=== PATIENT | female | born 1995 | race Caucasian/White ===

== ENCOUNTER 2021-01-27 10:22 | Outpatient (RCR) | payer OTHER, SELFPAY ==
[2021-01-27 11:21] LABS: Beta HCG Quantitative < 2.39 mIU/ML
== END 2021-04-27 23:59 | disposition home or self-care (01) ==
LOC: ANHLAB 10:22
PROVIDERS: Visit Provider Obstetrics & Gynecology
DX: N92.6 Irregular menstruation, unspecified (principal)
CPT/HCPCS: 36415; 84702

== ENCOUNTER 2021-02-12 14:23 | Outpatient (CLI) | payer OTHER, SELFPAY ==
[2021-02-12 15:08] LABS: Beta HCG Quantitative < 2.39 mIU/ML
== END 2021-02-12 14:24 | disposition home or self-care (01) ==
LOC: ANHLAB 14:24
PROVIDERS: Visit Provider Obstetrics & Gynecology
DX: N92.6 Irregular menstruation, unspecified (principal)
CPT/HCPCS: 36415; 84702

== ENCOUNTER 2021-05-12 19:41 | Emergency (ER) | payer OTHER, SELFPAY ==
--- NOTE | 2021-05-12 19:43 | ED.GENADULT ---
HPI - General Adult General Chief complaint: Upper Respiratory Infection Stated complaint: Doctors Note Time Seen by Provider: 05/12/21 19:44 Source: patient, RN notes reviewed and old records reviewed Mode of arrival: ambulatory Limitations: no limitations History of Present Illness HPI narrative: 25-year-old female presents to the [facility] with wanting additional work notes. Patient reports that she was seen at [facility] yesterday, diagnosed with a bilateral ear infection. States she was not feeling better and wanted more time to be off. Discussed with patient that anything over 2 to 3 days can fall under FMLA and she needs to follow-up with her primary care provider for extended work absence. Related Data Home Medications Medication Instructions Recorded Confirmed amoxicillin-pot clavulanate tablet 05/12/21 prednisone 05/12/21 Allergies Allergy/AdvReac Type Severity Reaction Status Date / Time No Known Allergies Allergy Unknown Verified 05/12/21 19:44 Review of Systems Review of Systems: All systems reviewed & are unremarkable except as noted in HPI and below Constitutional: Constitutional: Reports no additional constitutional complaints, Denies chills and Denies fever(s) Eyes: Eyes: Reports no additional eye complaints ENT: Reports system reviewed and no additional complaints, except as documented Cardiovascular: Cardiovascular: Reports no additional cardiovascular complaints and Denies chest pain Respiratory: Respiratory: Reports no additional respiratory complaints, Denies cough and Denies dyspnea Gastrointestinal: Gastrointestinal: Reports no additional gastrointestinal complaints, Denies abdominal pain, Denies nausea and Denies vomiting Musculoskeletal: Musculoskeletal: Reports no additional musculoskeletal complaints, Denies back pain and Denies myalgias Integumentary/Breasts: Skin/Breast: Reports system reviewed and no additional complaints, except as docu Neurologic: Reports system reviewed and no additional complaints, except as documented and Denies headache(s) Psychiatric: Psychiatric: Reports no additional psychiatric complaints Allergic/Immunologic: Allergic/Immunologic: Reports no additional allergic/immunologic complaints PMFSH Past Medical History Medical History (Updated 05/12/21 @ 20:02 by Pebbles Chen APRN) Depression Comments At the time of my signature, I reviewed and agree with the nursing past medical, surgical, social, and family history. There is no relevant family history pertinent to the patient complaint. Exam Const: General: healthy appearing, no acute distress and alert Nutritional Appearance: well nourished Orientation/consciousness: patient oriented x3 Limitations: no limitations HENMT: Head: normal to inspection Ears: external ears normal Eyes: Pupils: Equal, round and reactive pupils present Neck: Neck: normal visual inspection, no lymphadenopathy and no meningeal signs Chest: Chest palpation & inspection: normal inspection of the chest Resp: Effort & Inspection: normal respiratory effort and no use of accessory muscles Auscultation: clear to auscultation bilaterally, no crackles, no rales, no rhonchi and no wheezes Cardio: Rate: regular rate Rhythm: regular rhythm Skin: General skin exam: normal color Rashes: no rashes Wounds: no wounds Neuro: General: patient oriented x3, moves all extremities, no meningeal signs and no focal motor deficits Cranial nerves: Yes Equal, round and reactive pupils present Speech: normal speech Gait exam (Neuro): Normal gait present Extrem: General: normal to inspection Psych: Appearance: grossly normal and well kempt Mental Status: mental status grossly normal Affect: normal affect Attitude: cooperative Thought content: Yes Normal thought content present Course Course Emergency Course: Discharge instructions reviewed with patient, as well as provided in writing per nursing staff. The instructions a
[2021-05-12 19:50] VITALS: BP 131/78; PULSE 80; RESP 16; TEMP 37.2; O2SAT 100
== END 2021-05-12 20:00 | disposition home or self-care (01) ==
PROVIDERS: Emergency Provider Nurse Practitioner
DX: H66.93 Otitis media, unspecified, bilateral (principal)
CPT/HCPCS: 99211; G0463

== ENCOUNTER 2022-05-23 10:13 | Emergency (ER) | payer OTHER, SELFPAY ==
--- NOTE | 2022-05-23 10:21 | ED.URI ---
HPI - URI/Sore Throat General Chief Complaint: Upper Respiratory Infection Stated Complaint: uri Time Seen by Provider: 05/23/22 10:28 Source: patient and RN notes reviewed Mode of arrival: ambulatory Limitations: no limitations History of Present Illness HPI Narrative: 26-year-old female presents with concern for sore throat and ear pain that started yesterday. She reports her daughter had strep throat last week. She denies runny nose, stuffy nose, headache, stomachache, fever, chills, sweats, body aches MD elicited complaint: sore throat Related Data Allergies Allergy/AdvReac Type Severity Reaction Status Date / Time No Known Allergies Allergy Unknown Verified 05/23/22 10:34 Review of Systems Review of Systems: CONSTITUTIONAL: Denies malaise, chills, sweats, or fever. EYES: Denies visual changes, redness, or discharge. ENT: Denies rhinorrhea, congestion, sinus pain. Reports otalgia and sore throat. CARDIOVASCULAR: Denies chest pain, palpitations, or edema. RESPIRATORY: Denies cough. Denies dyspnea. GASTROINTESTINAL: Denies abdominal pain, nausea, vomiting, diarrhea SKIN: Denies rash or itching. MUSCULOSKELETAL: Denies myalgia. NEUROLOGIC: Denies headache. All systems reviewed & are unremarkable except as noted in HPI and below PMFSH Past Medical History Medical History Depression FH: cholecystectomy Social History Social History (Updated 02/18/22 @ 09:49 by Yuridia Yan MA) Smoking status: Unknown if ever smoked Tobacco type: e-cigarettes/vaping Alcohol intake: never Substance use: never Living arrangements: with family Occupation/Education: unemployed Gender identity (if verbalized by the patient): Female Sexual Orientation (if Verbalized by the Patient): Straight or Heterosexual Comments At time of signature, agree with nursing past medical, surgical, social and family history. There is no relevant family history pertinent to the presenting complaint Exam Narrative: GENERAL: Well-appearing, well-nourished, and in no acute distress. HEAD: Normocephalic EYES: PERRLA, conjunctivae clear ENT: Nares clear, no discharge. Mucous membranes moist. TM pearly worrell with sharp light reflex bilaterally; no tragal tenderness. Oropharynx erythematous without lesions. Tonsils enlarged and without exudate, no drooling, no hoarseness, no trismus, uvula midline. NECK: Supple. No lymphadenopathy CHEST: Clear to auscultation, breath sounds equal. No wheezing, rhonchi, rales, or stridor. No respiratory distress, speaks in full sentences. HEART: Regular rate and rhythm. No murmur heard. SKIN: Warm, dry, no rash. NEURO: Alert and oriented x3. PSYCH: Normal mood and affect Course Course Emergency Course: Patient is aware of diagnosis, understands and agrees to treatment plan. Anticipatory guidance given. Patient agrees to follow-up as directed and is aware of reasons to seek care at the emergency department. Portions of this record may have been created with voice recognition software Level of Care: Express Care Visit Vital Signs Vital signs: Reviewed. MDM - URI/Sore Throat MDM Narrative Medical decision making narrative: Differential diagnosis considered: Mata virus, strep pharyngitis, allergic rhinitis, upper respiratory tract infection, sinusitis, rhinosinusitis, nasopharyngitis. viral pharyngitis, otitis media, otitis externa, pneumonia, bronchitis, viral cough syndrome, viral syndrome, and influenza. Exam findings show no acute concerns or changes; patient is non-toxic appearing and is in no distress. Patient is appropriate for outpatient treatment and follow-up. Lab Data Attestation: I reviewed the patient's lab results. Critical Care Time Critical Care Time Critical Care Time: No Discharge Plan Discharge Clinical Impression: Acute streptococcal pharyngitis Patient Disposition: Home, Self-Care Condition: Stable Instructions:
[2022-05-23 10:22] VITALS: BP 142/86; PULSE 105; RESP 16; TEMP 37.5; O2SAT 99
== END 2022-05-23 10:53 | disposition home or self-care (01) ==
PROVIDERS: Emergency Provider Nurse Practitioner; PCP Physician Assistant
DX: J02.0 Streptococcal pharyngitis (principal)
CPT/HCPCS: 87880; 99213; G0463

== ENCOUNTER 2022-08-27 09:32 | Outpatient (CLI) | payer OTHER, SELFPAY ==
[2022-08-27 10:20] LABS: Basophils Absolute Auto 0.1 K/mm3 (0.0-0.1); Basophils Percent Auto 0.9 % (0.2-1.2); Eosinophils Absolute Auto 0.3 K/mm3 (0-0.3); Eosinophils Percent Auto 3.6 % (0-4.4); Hematocrit 42.2 % (37.0-47.0); Hemoglobin 13.4 g/dL (12.0-15.0); Immature Granulocyte Absolute 0.02 K/mm3 (0.00-0.031); Immature Granulocyte Percent A 0.3 % (0-0.5); Lymphocytes Absolute Auto 2.81 K/mm3 (0.9-3.2); Lymphocytes Percent Auto 35.3 % (18.3-44.2); Mean Corpuscular HGB Conc 31.8 g/dl (32-36); Mean Corpuscular Hemoglobin 25.6 pg (26-34); Mean Corpuscular Volume 80.5 fl (80-100); Mean Platelet Volume 10.5 fl (7.4-10.4); Monocytes Absolute Auto 0.6 K/mm3 (0.1-0.6); Monocytes Percent Auto 7.3 % (2.6-8.5); Neutrophils Absolute Auto 4.2 K/mm3 (1.3-6.7); Neutrophils Percent Auto 52.6 % (45.5-73.1); Platelet Count Result 269 k/mm3 (150-375); Red Blood Count 5.24 M/mm3 (4.2-5.4); Red Cell Distribution Width 13.6 % (11.5-14.5)
[2022-08-27 10:25] LABS: Hemoglobin A1C 5.4 % (<5.7)
[2022-08-27 10:45] LABS: Cholesterol 186 mg/dL (0-200); HDL Direct 27 mg/dL; Triglycerides 205 mg/dL (<150)
[2022-08-27 10:56] LABS: LDL Cholesterol Direct 110 mg/dL
[2022-08-27 10:59] LABS: Beta HCG Quantitative < 2.39 mIU/ML
[2022-08-27 11:13] LABS: Iron 82 ug/dL (37-170)
[2022-08-27 11:22] LABS: Percent Iron Saturation 23 % (20-50)
[2022-08-31 11:47] LABS: DHEA-Sulfate 141 mcg/dL (18-391); Insulin Level Total 15.2 uIU/mL (<=19.6)
[2022-09-03 00:12] LABS: Estradiol, Ultrasensitive 44 pg/mL
[2022-09-03 06:41] LABS: FSH 7.3 mIU/mL (***); Prolactin 9.6 ng/mL (***)
[2022-09-03 07:27] LABS: Progesterone 0.5 ng/mL (***)
[2022-09-06 07:33] LABS: Free Insulin 14.5
== END 2022-08-27 09:33 | disposition home or self-care (01) ==
PROVIDERS: PCP Physician Assistant; Visit Provider Obstetrics & Gynecology
DX: N92.6 Irregular menstruation, unspecified (principal); E66.01 Morbid (severe) obesity due to excess calories
CPT/HCPCS: 36415; 80061; 82627; 82670; 82728; 83001; 83036; 83498; 83525; 83527; 83540; 83550; 84144; 84146; 84443; 84702; 85025

== ENCOUNTER 2022-10-04 10:42 | Emergency (ER) | payer OTHER, SELFPAY ==
[2022-10-04 10:56] VITALS: BP 134/76; PULSE 92; RESP 18; TEMP 36.2; O2SAT 100
--- NOTE | 2022-10-04 11:23 | ED.URI ---
HPI - URI/Sore Throat General Chief Complaint: Upper Respiratory Infection Stated Complaint: cough, sore throat Time Seen by Provider: 10/04/22 11:16 Source: patient and RN notes reviewed Mode of arrival: ambulatory Limitations: no limitations History of Present Illness HPI Narrative: Patient presents today complaining 3 day history of sore throat, cough, headache, left ear pain. She was exposed to strep throat a few days prior to onset of symptoms. Currently rates her pain 6/10 and has been taking DayQuil with mild short-term relief. Patient vapes. Related Data Allergies Allergy/AdvReac Type Severity Reaction Status Date / Time No Known Allergies Allergy Unknown Verified 10/04/22 10:52 Review of Systems Review of Systems: CONSTITUTIONAL: Denies body aches, fever, chills, or sweats. EYES: Denies visual changes, redness, or discharge. ENT: Denies rhinorrhea, congestion.+ sore throat, ear pain CARDIOVASCULAR: Denies chest pain, palpitations, or edema. RESPIRATORY: Denies dyspnea.+ cough GASTROINTESTINAL: Denies abdominal pain, nausea, vomiting, or diarrhea. GENITOURINARY: Denies dysuria or hematuria. SKIN: Denies rash, itching, or wounds. MUSCULOSKELETAL: Denies back pain, joint pain, or myalgia. NEUROLOGIC: Denies numbness, tingling, or weakness.+ headache PSYCH: Denies depression or anxiety. REPLACED BY [facility] Past Medical History Medical History Depression Nexplanon insertion 10/23/13 Nexplanon insertion 08/01/17 Nexplanon insertion Nexplanon removal 06/09/15 Nexplanon removal 11/06/20 Nexplanon removal Vaginal delivery 08/30/13 no complications Jose G 06/20/17 no complications Kynlee Surgical History Surgical History History of cholecystectomy (07/25/17) Social History Social History Smoking status: Current some day smoker Tobacco type: e-cigarettes/vaping Alcohol intake: never Substance use: never Lack of Transportation: No Lack of Food: Never True Current Housing: I Have Housing Concerned About Future Housing: No Difficulty Paying Gas/Electric Bills: No Difficulty Paying for Meds: No Currently Unemployed: No Education: High School Diploma/GED Living arrangements: with family Occupation/Education: occupation Gender identity (if verbalized by the patient): Female Sexual Orientation (if Verbalized by the Patient): Straight or Heterosexual Comments At time of signature, I have reviewed and agree with nursing past medical, surgical, social and family history unless otherwise noted. Please see nursing chart for further information. There is no relevant family history pertinent to the presenting complaint Exam Narrative: GENERAL: Mildly ill-appearing, well-nourished, and in no acute distress. HEAD: Normocephalic, atraumatic. EYES: EOMI. No redness or drainage. Conjunctivae normal. ENT: Mucous membranes pink and moist. Nares clear. No rhinorrhea. TMs normal bilaterally. Throat erythematous and edematous. Uvula midline. NECK: Normal AROM. Supple. No lymphadenopathy. CHEST: No respiratory distress. Clear to auscultation. HEART: Regular rate and rhythm. No murmur appreciated. Normal peripheral pulses. EXTREMITIES: Normal range of motion. No edema. SKIN: Warm, dry, no rash. Capillary refill normal. Normal skin turgor. NEURO: No focal deficits. Alert and oriented x3. Gait steady. PSYCH: Normal affect. No signs of depression or anxiety. Course Course Level of Care: Express Care Visit Vital Signs Vital signs: Vital Signs Temperature 97.1 F L 10/04/22 10:56 Pulse Rate 92 10/04/22 10:56 Respiratory Rate 18 10/04/22 10:56 Blood Pressure 134/76 10/04/22 10:56 Pulse Oximetry 100 10/04/22 10:56 Oxygen Delivery Room Air 10/04/22 10:56 Temperature 97.1 F L
== END 2022-10-04 11:32 | disposition home or self-care (01) ==
PROVIDERS: Emergency Provider Nurse Practitioner; PCP Emergency Medicine
DX: J02.0 Streptococcal pharyngitis (principal); F17.290 Nicotine dependence, other tobacco product, uncomplicated
CPT/HCPCS: 87880; 99213; G0463

== ENCOUNTER 2024-01-04 18:59 | Emergency (ER) | payer OTHER, SELFPAY ==
--- NOTE | 2024-01-04 19:03 | ED_ITS ---
HPI - Female Genitourinary General Chief complaint: Urogenital-Female Stated complaint: urinary issue Time Seen by Provider: 01/04/24 19:02 Source: patient Mode of arrival: ambulatory Limitations: no limitations History of Present Illness HPI Narrative: Kerry is a 28-year-old female patient presenting to clinic today with complaints of possible UTI. She reports she has been having left flank pain with pain radiating into the left lower abdomen. Pain is sharp in nature and comes and goes. Her currently rates her pain a 6/10. Symptoms started around 8:00 a.m. this morning. States she is having urges to urinate however is urinating very little. Does have some associated nausea. Denies any dysuria. Denies any vaginal discharge. Denies constipation. No history of kidney stones. Related Data Allergies Allergy/AdvReac Type Severity Reaction Status Date / Time No Known Allergies Allergy Unknown Verified 10/04/22 10:52 Review of Systems Review of Systems: Pertinent positives per HPI. Patient denies any fever, chills, rash, headache, visual changes, dizziness, cough, shortness of breath, chest pain, palpitations, vomiting, diarrhea, constipation. [facility] Past Medical History Medical History Depression Nexplanon insertion 10/23/13 Nexplanon insertion 08/01/17 Nexplanon insertion Nexplanon removal 06/09/15 Nexplanon removal 11/06/20 Nexplanon removal Vaginal delivery 08/30/13 no complications Jose G 06/20/17 no complications Kynlee Surgical History Surgical History History of cholecystectomy (07/25/17) Social History Social History Smoking status: Current some day smoker Tobacco type: e-cigarettes/vaping Alcohol intake: never Substance use: never Lack of Transportation: No Lack of Food: Never True Current Housing: I Have Housing Concerned About Future Housing: No Difficulty Paying Gas/Electric Bills: No Difficulty Paying for Meds: No Currently Unemployed: No Education: High School Diploma/GED Living arrangements: with family Occupation/Education: occupation Gender identity (if verbalized by the patient): Female Sexual Orientation (if Verbalized by the Patient): Straight or Heterosexual Comments At the time of my signature, I reviewed and agree with the nursing past medical, surgical, social, and family history. There is no relevant family history pertinent to the patient complaint. Exam Narrative: General: Well-developed, morbidly obese, in no apparent distress Head: Normocephalic, atraumatic. Cardio: Regular rate and rhythm, s1 and s2 normal, no murmur appreciated. Resp: Clear to auscultation bilaterally, no rhonchi, rales, wheezing or rubs. Abdomen: Soft, pliable, bowel sounds present in all quadrants, left upper quadrant tender to palpation, no organomegly, left CVAT tenderness. Course Course Emergency Course: Portions of this record may have been created with voice recognition software. Level of Care: Express Care Visit Vital Signs Vital signs: Vital Signs Temperature 36.8 C 01/04/24 19:15 Pulse Rate 109 H 01/04/24 19:15 Respiratory Rate 16 01/04/24 19:15 Blood Pressure 154/86 H 01/04/24 19:15 Pulse Oximetry 97 01/04/24 19:15 Oxygen Delivery Room Air 01/04/24 19:15 Temperature 36.8 C 01/04/24 19:15 Pulse Rate 109 H 01/04/24 19:15 Respiratory Rate 16 01/04/24 19:15 Blood Pressure 154/86 H 01/04/24 19:15 Pulse Oximetry 97 01/04/24 19:15 Oxygen Delivery Room Air 01/04/24 19:15 Vital signs reviewed MDM - Female Genitourinary MDM Narrative Medical decision making narrative: At the time of visit patient is resting comfortably on the exam table. Patient appears to be nontoxic. Labs: UA positive for 3+ blood. No sign of infection. Plan: Patient has left flank pain with positive left CVAT, hematuria 3+ in the urine, left flank pain with radiation of pain into the left lower abdomen. I suspect patient has ureterolithiasis. Patient aware and agrees to transfer to the emergency room for further evaluation. Patient would like to go to [facility]. Discussed patient's case with Dr. La at [facility] and he accepts patient for transfer. Would like patient to get 1 g of Tylenol as wait times could be 4-5 hours. Differential Diagnosis Differential diagnosis: Likely urinary tract infection, cystitis and other (Ureterolithiasis, nephrolithiasis, pyelonephritis) Lab Data Labs: Lab Results 01/04/24 Range/Units 19:16 POC Urine Color Yellow POC Urine Clarity Clear POC Urine pH 5.0 POC Ur Specif [place] 1.025 POC Urine Protein Negative (Negative) POC Ur Glucose (UA) Negative (Negative) POC Urine Ketones Negative (Negative) POC Urine Blood 3+ (Negative) POC Urine Nitrite Negative (Negative) POC Urine Bilirubin Negative (Negative) POC Urine Urobilinogen 0.2 POC U Leukocyte Esteras Negative (Negative) Discharge Plan Discharge Clinical Impression: Acute left flank pain Hematuria Qualifiers: Hematuria type: unspecified type Qualified Code(s): R31.9 - Hematuria, unspecified Patient Disposition: Acute Care Hospital Condition: Stable Instructions: Antibiotic Form Follow-up/Referrals: PHYSICIAN,[facility] [Primary Care Provider] - Time of Disposition: 19:28 Quality NIHSS Nursing Documentation ED NIHSS nursing documentation: reviewed/agree
[2024-01-04 19:15] VITALS: BP 154/86; PULSE 109; RESP 16; TEMP 36.8; O2SAT 97
[2024-01-04 19:19] LABS: EDUAAPPEAR Clear; EDUABILI Negative (Negative); EDUABLOOD 3+ (Negative); EDUACOLOR1 Yellow; EDUAGLUCOSE Negative (Negative); EDUAKETONE Negative (Negative); EDUALEUKO Negative (Negative); EDUANITRATE Negative (Negative); EDUAPROTEIN Negative (Negative); EDUASPGRAVITY 1.025; EDUAUROBILI 0.2
[2024-01-04] MEDS: ACETAMINOPHEN 500 MG TABLET 1000 MG PO (19:25)
== END 2024-01-04 19:30 | disposition short-term general hospital (02) ==
PROVIDERS: Emergency Provider Nurse Practitioner Family
DX: R10.9 Unspecified abdominal pain (principal); R31.9 Hematuria, unspecified; F17.290 Nicotine dependence, other tobacco product, uncomplicated
CPT/HCPCS: 81003; 99212; 99213; A9270; G0463

== ENCOUNTER 2024-01-04 20:03 | Emergency (ER) | payer OTHER, SELFPAY ==
--- NOTE | 2024-01-04 20:05 | PC.NURSE ---
Patient advised that she would go somewhere else after seeing waiting room
== END 2024-01-04 20:51 | disposition left against medical advice (07) ==
DX: Z53.21 Procedure and treatment not carried out due to patient leaving prior to being seen by health care provider (principal)
CPT/HCPCS: 99199